=== PATIENT | male | born 1975 | race Two or more races ===

== ENCOUNTER 2022-02-20 11:03 | Emergency (ER) | payer MEDICAID ==
[~2022-02-20] VITALS: Ht 185.4 cm; Wt 66.2 kg
--- NOTE | 2022-02-20 11:30 | NUR ---
TOLD TO COME HERE BY ETHAN DIAZ [facility] THINKING THIS IS THE [facility], SCALD BURN SUSTAINED 02/09/22 WHILE WORKING ON A ROOF.
--- NOTE | 2022-02-20 11:49 | NUR ---
CONTACTED [facility] [place] [facility] [phone] SENT IMAGES TO [phone] REYES AND CALL US BACK.
--- NOTE | 2022-02-20 12:04 | NUR ---
Patient discharged to home in stable condition. Written and verbal after care instructions given. Patient verbalizes understanding of instruction.
[2022-02-20 12:09] VITALS: BP 135/85
== END 2022-02-20 12:04 | disposition home or self-care (01) ==
LOC: ER 11:13
DX: T24.201A Burn of second degree of unspecified site of right lower limb, except ankle and foot, initial encounter (principal); T31.0 Burns involving less than 10% of body surface; E11.9 Type 2 diabetes mellitus without complications